=== PATIENT | female | born 1960 | race Caucasian/White ===

== ENCOUNTER → 2019-03-16 12:41 | Outpatient (CLI) | payer BC | END | disposition home or self-care (01) | LOC: D.MRI 12:41 | PROVIDERS: ATTEND Orthopaedic Surgery | DX: S83.231A Complex tear of medial meniscus, current injury, right knee, initial encounter (principal) ==

== ENCOUNTER 2019-04-23 09:25 | Day surgery (SDC) | payer BC ==
[2019-04-22 14:32] LABS: HEMATOCRIT 43.2 % (36.0-48.0); HEMOGLOBIN 14.6 g/dL (12-16); MCH 29.8 pg (26.0-34.0); MCHC 33.8 g/dL (31.0-37.0); MCV 88.2 fL (80.0-100.0); MEAN PLATELET VOLUME 9.7 fL (7.4-10.4); RBC 4.9 10x6/uL (4.00-5.40); RDW 13.7 % (11.5-14.5); WBC 10.3 10x3/uL (4.8-10.8)
[2019-04-22 14:40] LABS: CALC OSMOLALITY 272 mosm/kg (275-300); CALCIUM 9.1 mg/dL (8.5-10.1); CARBON DIOXIDE 25.6 mmol/L (21.0-32.0); CHLORIDE - SERUM 101 mmol/L (98-107); CREATININE - SERUM 0.8 mg/dL (0.6-1.3); GLUCOSE 115 mg/dL (74-106); POTASSIUM - SERUM 3.1 mmol/L (3.5-5.1); SODIUM 136 mmol/L (136-145); UREA NITROGEN 12 mg/dL (7-18); eGFR NON AFRICAN AMERICAN 78 mL/min (90-120)
[~2019-04-23] VITALS: Ht 147.3 cm; Wt 65.8 kg
[~2019-04-23 09:25] MED LIST: BUPROPION XL150 MG PO; CLARITIN 10 MG10 MG PO; FISH OIL 1,0001 CA1 PO; FLUTICASONE PRO16 GM NASAL; METOPROLOL HCT; PHENERGAN25 M1 PO; SCOPOLAMINE1 EACH TRANSDERM; UROCIT-K10 MEQ PO
[2019-04-23 09:58] VITALS: Ht 147.3 cm; Wt 65.8 kg
[2019-04-23] MEDS ORDERED: PERCOCET 10-321 EAC1 PO (13:21)
--- NOTE | 2019-04-23 14:00 | NUR ---
IMMOBILISER ON RT LEG ON ADMIT TO RR
--- NOTE | 2019-04-23 18:19 | NUR ---
PT HERE FOT STRICT NBAT WALKER TRAINING. SPOKE WITH DR. DESIR TO CLARIFY ROM. ABSOLUTELY NO ROM. PT VERBALIZED AN UNDERSTANDING
--- NOTE | 2019-04-30 15:15 | OP ---
PATIENT NAME: ORION GARCIA MEDICAL RECORD: [id number] LOCATION:[facility] ADMISSION DATE: SURGEON: GILL DESIR MD DATE OF OPERATION: 04/23/2019 PREOPERATIVE DIAGNOSIS: Large articular surface defect of the right knee medial femoral condyle. POSTOPERATIVE DIAGNOSES: 1. Large articular surface defect of the right knee medial femoral condyle. 2. Complex tear of the posterior horn of the medial meniscus. PROCEDURE: 1. Open osteochondral allograft for a lesion that had greater than 2.5 cm in total. 2. Arthroscopic partial medial meniscectomy. SURGEON: Gill Desir MD POP SINGER: Wyatt Ayala. INTRAOPERATIVE COMPLICATIONS: None. SUMMARY OF PATHOLOGIC FINDINGS: Upon knee arthroscopy, the patient was found to have the known defect of the medial femoral condyle; however, the patient had a small but complex tear of the posterior horn of medial meniscus. Attention was turned to the medial meniscus and a combination of arthroscopic meniscotomes as well as an arthroscopic resector were utilized to debride the medial meniscus with good retention of medial meniscus and stable elements and residual. The large defect was identified. An arthrotomy was performed in line with the medial arthroscopic portal. Then, under direct visualization after good retraction of the capsule cleanup of the area was undertaken with the arthroscopic resector. Drill was then done with the arthroscopic power pick from [employer], resulting in a good bleeding bone bed. The Cartiform implant having been soaked in PRP for approximately 15 minutes was then anchored to the bed using a 3.0 PushLock from [employer] that had been prepared with a #2 Vicryl. This resulted in fairly stable, but yet tenuous approximation. At this point, a second PushLock was used in the superior aspect to result in excellent stabilization of the Cartiform graft. At this point, the residual of the PRP was placed in and about the graft and then this was sealed nicely with BioGlue. After the BioGlue was allowed to harden, the knee was gently placed back in extension under valgus loading to decrease pressure on the graft itself. At this point, the arthrotomy was closed by Wyatt ayala using #1 Vicryl followed by 2-0 Vicryl and skin jessi. Portals were closed likewise. Sterile dressings were applied. The patient was awakened and taken to the recovery room in stable condition. All final needle and sponge counts were correct. TRANSINT:[id number] Voice Confirmation ID: [id number] DOCUMENT ID: [id number] OPERATIVE REPORT [id number] ORION GARCIA MD, GILL CALDERON at 1515 CC: [id number] DICTATION DATE: 04/30/19 1127 DIE CAST OPERATOR: 04/30/19 1215 [facility] [place] 04/23/19 [place] [id number] [place] [id number]
== END 2019-04-23 16:40 | disposition home or self-care (01) ==
LOC: D.OPS 09:25 → D.PAN 19:30 → D.OPS 05-07 08:15
PROVIDERS: Anesthesiology; ATTEND Orthopaedic Surgery
DX: M93.261 Osteochondritis dissecans, right knee (principal); S83.231A Complex tear of medial meniscus, current injury, right knee, initial encounter; X58.XXXA Exposure to other specified factors, initial encounter; Z01.812 Encounter for preprocedural laboratory examination